=== PATIENT | female | born 1960 | race Caucasian/White ===

== ENCOUNTER → 2021-06-03 16:47 | Outpatient (CLI) | payer OTHER, SELFPAY ==
--- NOTE | ~2021-06-03 | XR_ITS ---
XR hip LT min 3V w AP pelvis 06/03/2021 17:11 INDICATION: Left hip pain PROCEDURE: 3 views left hip COMPARISON: No prior studies for comparison. FINDINGS: Fracture, dislocation or subluxation is not identified. The soft tissues appear within norm al limits. No foreign bodies are identified. There are coarse calcifications in the left pelvis, con sistent with calcified uterine fibroids. IMPRESSION: 1: NO ACUTE BONE OR JOINT ABNORMALITY IDENTIFIED. Reviewed, dictated and finalized at location A.
--- NOTE | ~2021-06-03 | XR_ITS ---
XR lumbar spine 2-3V 06/03/2021 17:11 Indication: Low back pain Procedure: 3 views of the lumbar spine Comparison: No prior studies for comparison. Findings: There is mild altered level disc narrowing, consistent with degenerative disc disease. No a cute fracture, subluxation or spondylolisthesis. There is mild lower lumbar facet hypertrophy. Normal lumbar alignment. There are calcified uterine fibroids in the pelvis. There are cholecystectomy clip s. Impression: 1: Mild lumbar spondylosis. Reviewed, dictated and finalized at location A. Impression: 1: Mild lumbar spondylosis.
== END ==
PROVIDERS: Visit Provider Physician Assistant Medical
DX: M54.50 Low back pain, unspecified (principal); G89.29 Other chronic pain; M25.552 Pain in left hip; M47.896 Other spondylosis, lumbar region
CPT/HCPCS: 72100; 73502

== ENCOUNTER 2024-03-14 15:36 | Outpatient (RCR) | payer OTHER, SELFPAY ==
[2024-03-14 15:39] VITALS: BMI 23.8
== END 2024-05-30 10:33 | disposition home or self-care (01) ==
LOC: ANHDMC 15:36
PROVIDERS: PCP Family Medicine; Visit Provider Nurse Practitioner Family
DX: E11.9 Type 2 diabetes mellitus without complications (principal); Z71.3 Dietary counseling and surveillance
CPT/HCPCS: 97802